=== PATIENT | female | born 1955 ===

== ENCOUNTER 2017-02-28 08:30 | Day surgery (SDC) | payer OTHER ==
[2017-01-21 10:48] VITALS: BMI 38.0
[2017-02-28] MEDS ORDERED: Midazolam 2 MG/2 ML VIAL ONE (11:01)
[2017-02-28] MEDS ORDERED: Propofol 10 mg/ml Inj (20 ML) ONE (11:02)
[2017-02-28] MEDS ORDERED: Lactated Ringer's 500 ML IV ONE (11:17)
[2017-02-28 12:02] VITALS: TEMP 97; O2SAT 100
[2017-02-28 12:03] VITALS: BP 154/76; PULSE 55; RESP 12
== END 2017-02-28 12:25 | disposition home or self-care (01) ==
LOC: H.ENDO 08:30
PROVIDERS: ATTEND Internal Medicine Gastroenterology
DX: Z12.11 Encounter for screening for malignant neoplasm of colon (principal); E03.9 Hypothyroidism, unspecified; I10 Essential (primary) hypertension; E66.01 Morbid (severe) obesity due to excess calories; K64.8 Other hemorrhoids; K57.30 Diverticulosis of large intestine without perforation or abscess without bleeding
CPT/HCPCS: 45378; J2250; J2704; J7120

== ENCOUNTER 2017-07-30 13:44 | Observation (INO) | payer OTHER ==
[2017-07-30 13:44] VITALS: BMI 35.4
--- NOTE | 2017-07-30 14:20 | ED PDOC ---
HPI: Chest Pain Time Seen by Provider: 07/30/17 13:48 Chief Complaint (Nursing): Chest Pain Chief Complaint (Provider): Left Sided Chest Pain History Per: Patient History/Exam Limitations: no limitations Onset/Duration Of Symptoms: Days (x1) Current Symptoms Are (Timing): Still Present Pain Scale Rating Of: 5 Quality: Tightness Associated Symptoms: denies: Nausea Modifying Factors: None Exacerbating Factors: None Alleviating Factors: None Additional Complaint(s): 62 year old female with a past medical history of hypothyroidism and hypertension presents to the ED complaining of non-radiating left sided chest pain which began last night. The patient describes the pain as a "tightness" in her chest. Denies cough, fever. PMD: [facility] - Risk Factors TAD Risk Factors: Pos: Hypertension Past Medical History Reviewed: Historical Data, Nursing Documentation, Vital Signs Vital Signs: Last Vital Signs Temp 97.6 F 07/30/17 13:59 Pulse 79 07/30/17 13:59 Resp 16 07/30/17 13:59 BP 127/80 07/30/17 13:59 Pulse Ox 100 07/30/17 14:24 - Medical History PMH: HTN, Hypothyroidism - Surgical History Surgical History: No Surg Hx - Family History Family History: States: Unknown Family Hx - Social History Current smoker - smoking cessation education provided: No Ex-Smoker (has not smoked in the last 12 months): No Alcohol: None Drugs: Denies - Home Medications Home Medications: Ambulatory Orders Medication Instructions Recorded Levothyroxine [Synthroid] 1 tab PO DAILY 02/28/17 Metoprolol Succinate [Toprol XL] 1 tab PO DAILY 02/28/17 - Allergies Allergies/Adverse Reactions: Allergies Allergy/AdvReac Type Severity Reaction Status Date / Time No Known Allergies Allergy Verified 02/28/17 10:13 Review of Systems ROS Statement: Except As Marked, All Systems Reviewed And Found Negative Constitutional: Negative for: Fever Cardiovascular: Positive for: Chest Pain (left sided) Respiratory: Negative for: Cough Physical Exam - Reviewed Nursing Documentation Reviewed: Yes Vital Signs Reviewed: Yes - Physical Exam Appears: Positive for: Non-toxic, No Acute Distress Head Exam: Positive for: ATRAUMATIC, NORMAL INSPECTION, NORMOCEPHALIC Skin: Positive for: Normal Color, Warm, Dry. Negative for: Rash Eye Exam: Positive for: Normal appearance, EOMI, PERRL ENT: Positive for: Normal ENT Inspection. Negative for: Nasal Congestion, Tonsillar Exudate Neck: Positive for: Normal, Painless ROM, Supple Cardiovascular/Chest: Positive for: Regular Rate, Rhythm, Chest Non Tender. Negative for: Tachycardia Respiratory: Positive for: Normal Breath Sounds. Negative for: Rales, Rhonchi, Wheezing, Respiratory Distress Gastrointestinal/Abdominal: Positive for: Normal Exam, Bowel Sounds, Soft. Negative for: Tenderness, Guarding, Rebound Back: Positive for: Normal Inspection. Negative for: L CVA Tenderness, R CVA Tenderness Extremity: Positive for: Normal ROM. Negative for: Tenderness, Deformity, Swelling Neurologic/Psych: Positive for: Alert, Oriented, Gait. Negative for: Motor/ Sensory Deficits - Laboratory Results Result Diagrams: 07/30/17 14:30 07/30/17 14:30 - ECG O2 Sat by Pulse Oximetry: 100 (RA) Pulse Ox Interpretation: Normal Medical Decision Making Medical Decision Makin Initial Impression 62 year old female presenting with chest pain r/o ACS Initial Plan * CMP * Troponin * CBC * CXR * Aspirin 325mg PO * Reevaluation Documented by Jodie Bonilla acting as a scribe for Luis Hall MD. All medical record entries made by the Scribe were at my direction and personally dictated by me. I have reviewed the chart and agree that the record accurately reflects my personal performance of the history, physical exam, medical decision making, and the department course for this patient. I have also personally directed, reviewed, and agree with the discharge instructions and disposition. Disposition - Clinical Impression Clinical Impression: Chest pain - Patient ED Disposition Is Patient to be Admitted: Yes - Disposition Disposition Time: 15:12 Condition: FAIR Forms: [facility] (Romanian) - Pt Status Changed To: Hospital Disposition Of: Observation - POA Present On Arrival: None
[2017-07-30 14:49] LABS: BASO # 0.1 K/uL (0.0-0.2); BASO % 0.8 % (0.0-2.0); EOS # 0.2 K/uL (0.0-0.7); EOS % 2.1 % (0.0-4.0); HEMOGLOBIN 11.5 g/dL (12.0-16.0); LYMPH # 1.8 K/uL (1.0-4.3); LYMPH % 20.6 % (20.0-40.0); MEAN CELL VOLUME 89.6 fl (81.0-99.0); MEAN CORPUSCULAR HEMOGLOBIN 30.8 pg (27.0-31.0); MEAN CORPUSCULAR HGB CONC 34.3 g/dL (33.0-37.0); MEAN PLATELET VOLUME 8.3 fl (7.2-11.7); MONO # 0.4 K/uL (0.0-0.8); NEUT # 6.4 K/uL (1.8-7.0); NEUT % 71.5 % (50.0-75.0); RBC 3.73 Mil/uL (3.80-5.20); RED CELL DISTRIBUTION WIDTH 13.9 % (11.5-14.5)
[2017-07-30 14:57] LABS: ALB/GLOB RATIO 1.1 (1.0-2.1); ALBUMIN 3.7 g/dL (3.5-5.0); ALT/SGPT 26 U/L (9-52); AST/SGOT 29 U/L (14-36); BLOOD UREA NITROGEN 14 mg/dl (7-17); CALCIUM 9.2 mg/dL (8.4-10.2); GFR AFRICAN-AMERICAN > 60; GFR NON-AFRICAN AMERICAN > 60
--- NOTE | 2017-07-30 18:35 | CP.PCM.HP ---
History of Present Illness - History of Present Illness History of Present Illness: 62 yo female with history of HTN and Hypothyroidism came in complaining of on and off left sided chest pain since a week ago. She claimed pain was non- radiating and described as pressure in character. She also volunteered that the pain usually happens at night and sometimes aggravated with movement of the left shoulder. Denied SOB. Stress Test done 4 days ago was negative for ischemia. An ECHO done 6 months ago was also negative for any pathologic findings. Present on Admission - Present on Admission Any Indicators Present on Admission: No History of DVT/PE: No History of Uncontrolled Diabetes: No Urinary Catheter: No Decubitus Ulcer Present: No Review of Systems - Review of Systems All systems: reviewed and no additional remarkable complaints except (aside from those mentioned above, 14 point system review were negative by me) Past Patient History - Tetanus Immunizations Tetanus Immunization: Unknown - Past Medical History & Family History Past Medical History?: Yes - Past Social History Smoking Status: Never Smoked Alcohol: None Drugs: Denies Home Situation {Lives}: With Family - CARDIAC Hx Cardiac Disorders: Yes - ENDOCRINE/METABOLIC Hx Endocrine Disorders: Yes - PSYCHIATRIC Hx Substance Use: No - SURGICAL HISTORY Hx Surgeries: Yes Hx Orthopedic Surgery: Yes (LEFT FOOT) - ANESTHESIA Hx Anesthesia: Yes Hx Anesthesia Reactions: No Hx Malignant Hyperthermia: No Meds Allergies/Adverse Reactions: Allergies Allergy/AdvReac Type Severity Reaction Status Date / Time No Known Allergies Allergy Verified 02/28/17 10:13 Physical Exam - Constitutional Appears: No Acute Distress - Head Exam Head Exam: ATRAUMATIC - Eye Exam Eye Exam: absent: Scleral icterus - ENT Exam ENT Exam: Mucous Membranes Moist - Neck Exam Neck exam: Negative for: Meningismus - Respiratory Exam Respiratory Exam: absent: Rhonchi, Wheezes, Respiratory Distress - Cardiovascular Exam Cardiovascular Exam: REGULAR RHYTHM, +S1, +S2 - GI/Abdominal Exam GI & Abdominal Exam: Soft. absent: Tenderness - Rectal Exam Rectal Exam: Deferred - Extremities Exam Extremities exam: Negative for: pedal edema - Neurological Exam Neurological exam: Alert, Oriented x3 - Psychiatric Exam Psychiatric exam: Normal Affect - Skin Skin Exam: Dry, Intact Results - Vital Signs Recent Vital Signs: Last Vital Signs Temp 97.6 F 07/30/17 17:15 Pulse 76 07/30/17 17:15 Resp 16 07/30/17 17:15 BP 134/76 07/30/17 17:15 Pulse Ox 100 07/30/17 15:12 - Labs Result Diagrams: 07/30/17 14:30 07/30/17 14:30 Labs: Laboratory Results - last 24 hr 07/30/17 07/30/17 14:30 14:30 WBC 9.0 RBC 3.73 L Hgb 11.5 L Hct 33.4 L MCV 89.6 MCH 30.8 MCHC 34.3 RDW 13.9 Plt Count 254 MPV 8.3 Neut % (Auto) 71.5 Lymph % (Auto) 20.6 [place] % (Auto) 5.0 Eos % (Auto) 2.1 Baso % (Auto) 0.8 Neut # (Auto) 6.4 Lymph # (Auto) 1.8 [place] # (Auto) 0.4 Eos # (Auto) 0.2 Baso # (Auto) 0.1 Sodium 143 Potassium 3.7 Chloride 103 Carbon Dioxide 28 Anion Gap 16 BUN 14 Creatinine 0.5 L Est GFR ( Amer) > 60 Est GFR (Non-Af Amer) > 60 Random Glucose 118 H Calcium 9.2 Total Bilirubin 0.3 AST 29 ALT 26 Alkaline Phosphatase 108 Troponin I < 0.0120 Total Protein 7.0 Albumin 3.7 Globulin 3.3 Albumin/Globulin Ratio 1.1 Assessment & Plan - Assessment and Plan (Free Text) Assessment: 62 yo female with history of HTN and Hypothyroidism came in complaining of on and off left sided chest pain since a week ago. She claimed pain was non- radiating and described as pressure in character. She also volunteered that the pain usually happens at night and sometimes aggravated with movement of the left shoulder. Denied SOB. Stress Test done 4 days ago was negative for ischemia. An ECHO done 6 months ago was also negative for any pathologic findings. 1. Chest Pain serial Troponin and EKG ASA, statin NTG SL prn for chest pain Morphine 2mg IV for pain not relieved with NTG 2. HTN BP stable Lisinopril 10mg PO daily 3. Hypothyroid Synthroid 137mcg PO daily TSH in am 4. DVT prophylaxis Lovenox 40mg SC daily
[2017-07-31 07:00] LABS: BASO # 0.1 K/uL (0.0-0.2); BASO % 0.8 % (0.0-2.0); EOS # 0.3 K/uL (0.0-0.7); EOS % 3.4 % (0.0-4.0); HEMOGLOBIN 11.4 g/dL (12.0-16.0); LYMPH # 2.4 K/uL (1.0-4.3); LYMPH % 30.3 % (20.0-40.0); MEAN CELL VOLUME 90.6 fl (81.0-99.0); MEAN CORPUSCULAR HEMOGLOBIN 29.6 pg (27.0-31.0); MEAN CORPUSCULAR HGB CONC 32.7 g/dL (33.0-37.0); MEAN PLATELET VOLUME 8.8 fl (7.2-11.7); MONO # 0.6 K/uL (0.0-0.8); MONO % 7.5 % (0.0-10.0); NEUT # 4.7 K/uL (1.8-7.0); NRBC % 0.1 % (0.0-0.0); RBC 3.83 Mil/uL (3.80-5.20); RED CELL DISTRIBUTION WIDTH 14.1 % (11.5-14.5); WHITE BLOOD COUNT 8.1 K/uL (4.8-10.8)
[2017-07-31 07:16] LABS: BLOOD UREA NITROGEN 14 mg/dl (7-17); CALCIUM 9.4 mg/dL (8.4-10.2); GFR AFRICAN-AMERICAN > 60; GFR NON-AFRICAN AMERICAN > 60; HDL CHOLESTEROL 43 MG/DL (30-70)
[2017-07-31 07:26] LABS: LDL CHOLESTEROL 108 mg/dL (0-129)
[2017-07-31 08:09] VITALS: BP 135/84; RESP 16; TEMP 97.4; O2SAT 99
[2017-07-31 08:55] VITALS: PULSE 55
[2017-07-31] MEDS ORDERED: Pantoprazole 40 mg EC Tab PO SCH (09:00)
[2017-07-31] MEDS ORDERED: Enoxaparin 40 mg Syringe SC SCH (09:00)
--- NOTE | 2017-07-31 10:19 | CP.PCM.DIS ---
Provider - Provider Date of Admission: 07/30/17 15:27 Attending physician: Yaniv Nesbitt MD Primary care physician: Dr. Diaz Time Spent in preparation of Discharge (in minutes): 15 Hospital Course - Lab Results Lab Results: Most Recent Lab Values WBC 8.1 K/uL (4.8-10.8) 07/31/17 06:31 RBC 3.83 Mil/uL (3.80-5.20) 07/31/17 06:31 Hgb 11.4 g/dL (12.0-16.0) L 07/31/17 06:31 Hct 34.7 % (34.0-47.0) 07/31/17 06:31 MCV 90.6 fl (81.0-99.0) 07/31/17 06:31 MCH 29.6 pg (27.0-31.0) 07/31/17 06:31 MCHC 32.7 g/dL (33.0-37.0) L 07/31/17 06:31 RDW 14.1 % (11.5-14.5) 07/31/17 06:31 Plt Count 238 K/uL (130-400) 07/31/17 06:31 MPV 8.8 fl (7.2-11.7) 07/31/17 06:31 Neut % (Auto) 58.0 % (50.0-75.0) 07/31/17 06:31 Lymph % (Auto) 30.3 % (20.0-40.0) 07/31/17 06:31 [place] % (Auto) 7.5 % (0.0-10.0) 07/31/17 06:31 Eos % (Auto) 3.4 % (0.0-4.0) 07/31/17 06:31 Baso % (Auto) 0.8 % (0.0-2.0) 07/31/17 06:31 Neut # (Auto) 4.7 K/uL (1.8-7.0) 07/31/17 06:31 Lymph # (Auto) 2.4 K/uL (1.0-4.3) 07/31/17 06:31 [place] # (Auto) 0.6 K/uL (0.0-0.8) 07/31/17 06:31 Eos # (Auto) 0.3 K/uL (0.0-0.7) 07/31/17 06:31 Baso # (Auto) 0.1 K/uL (0.0-0.2) 07/31/17 06:31 Sodium 142 mmol/l (132-148) 07/31/17 06:31 Potassium 3.7 MMOL/L (3.6-5.0) 07/31/17 06:31 Chloride 105 mmol/L (98-107) 07/31/17 06:31 Carbon Dioxide 27 mmol/L (22-30) 07/31/17 06:31 Anion Gap 14 (10-20) 07/31/17 06:31 BUN 14 mg/dl (7-17) 07/31/17 06:31 Creatinine 0.6 mg/dl (0.7-1.2) L 07/31/17 06:31 Est GFR ( Amer) > 60 07/31/17 06:31 Est GFR (Non-Af Amer) > 60 07/31/17 06:31 Random Glucose 87 mg/dL (65-105) 07/31/17 06:31 Calcium 9.4 mg/dL (8.4-10.2) 07/31/17 06:31 Total Bilirubin 0.3 mg/dl (0.2-1.3) 07/30/17 14:30 AST 29 U/L (14-36) 07/30/17 14:30 ALT 26 U/L (9-52) 07/30/17 14:30 Alkaline Phosphatase 108 U/L (38-126) 07/30/17 14:30 Troponin I < 0.0120 ng/mL (0.00-0.120) 07/31/17 07:04 Total Protein 7.0 G/DL (6.3-8.2) 07/30/17 14:30 Albumin 3.7 g/dL (3.5-5.0) 07/30/17 14:30 Globulin 3.3 gm/dL (2.2-3.9) 07/30/17 14:30 Albumin/Globulin Ratio 1.1 (1.0-2.1) 07/30/17 14:30 Triglycerides 53 mg/DL (0-149) 07/31/17 06:31 Cholesterol 166 mg/dL (0-199) 07/31/17 06:31 LDL Cholesterol Direct 108 mg/dL (0-129) 18 06:31 HDL Cholesterol 43 MG/DL (30-70) 07/31/17 06:31 TSH 3rd Generation 4.14 mIU/ML (0.46-4.68) 07/31/17 06:31 - Hospital Course Hospital Course: 62 yo female with history of HTN and Hypothyroidism sent from her hairspring studder' s office for evaluation. She states that developed sudden severe left sided chest pain associated with SOB the night before but did not seek medical attention.She states that feels palpitations on and off and for this her hairspring studder did a nuclear stress test last week (results not back) and and Echo .In er she was found to have NSR , Trop negative. She was placed under observation for chest pain to rule out ACS. Placed on tele monitor that showed no arrythmias troponins were cycled x 3 and were negative Patient is hemodynamically stable, afebrile with no chest pain no SOB, feeling well all test results explained to patient and all questions answered will discharge patient home with follow up with her hairspring studder Dx Chest pain ACs ruled out Obesity MBMI 36 hypothyroidism Hypertension Discharge Exam - Head Exam Head Exam: ATRAUMATIC, NORMAL INSPECTION, NORMOCEPHALIC - Eye Exam Eye Exam: EOMI, Normal appearance, PERRL Pupil Exam: NORMAL ACCOMODATION - ENT Exam ENT Exam: Mucous Membranes Moist, Normal Exam - Neck Exam Neck exam: Full Rom, Normal Inspection - Respiratory Exam Respiratory Exam: Clear to PA & Lateral, NORMAL BREATHING PATTERN. absent: Rales, Rhonchi, Wheezes - Cardiovascular Exam Cardiovascular Exam: REGULAR RHYTHM, RRR, +S1, +S2. absent: JVD - GI/Abdominal Exam GI & Abdominal Exam: Normal Bowel Sounds, Soft. absent: Distended, Guarding, Rebound, Tenderness - Rectal Exam Rectal Exam: Deferred - Extremities Exam Extremities exam: normal capillary refill, normal inspection, pedal pulses present - Back Exam Back exam: NORMAL INSPECTION - Neurological Exam Neurological exam: Alert, CN II-XII Intact, Oriented x3, Reflexes Normal - Psychiatric Exam Psychiatric exam: Normal Affect, Normal Mood - Skin Skin Exam: Dry, Intact, Normal Color, Warm Discharge Plan - Discharge Medications Prescriptions: Aspirin [Aspirin Chewable] 81 mg PO DAILY #30 chew - Follow Up Plan Condition: STABLE Disposition: HOME/ ROUTINE Patient education suggested?: Yes Referrals: Monika Diaz MD [Family Provider] -
--- NOTE | 2017-07-31 10:29 | RAD ---
HISTORY: chest pain COMPARISON: No prior. TECHNIQUE: Chest PA and lateral FINDINGS: LUNGS: No active pulmonary disease. PLEURA: No significant pleural effusion identified. No pneumothorax apparent. CARDIOVASCULAR: Normal. Atherosclerotic aorta. OSSEOUS STRUCTURES: No significant abnormalities. VISUALIZED UPPER ABDOMEN: Normal. OTHER FINDINGS: None. IMPRESSION: No active disease.
--- NOTE | 2017-08-01 09:07 | CARD ---
APPROVED REPORT EKG Measurement Heart [id number] <Conclusion> Normal sinus rhythm Non-specific ST-T changes
== END 2017-07-31 12:15 | disposition home or self-care (01) ==
LOC: H.ER 13:44 → H.ERHOLD 15:27 → H.TEL 17:23
DX: R07.89 Other chest pain (principal); Z68.36 Body mass index [BMI] 36.0-36.9, adult; E03.9 Hypothyroidism, unspecified; E66.9 Obesity, unspecified; I10 Essential (primary) hypertension; R00.2 Palpitations; R06.02 Shortness of breath
CPT/HCPCS: 36415; 71046; 80048; 80053; 80061; 84443; 84484; 85025; 93005; 99285; G0378